=== PATIENT | female | born 1990 | race Two or more races ===

== ENCOUNTER 2021-06-24 08:40 | Day surgery (SDC) | payer OTHER ==
[~2021-06-24 08:40] MED LIST: COZAAR25 MG PO
[2021-06-24] MEDS ORDERED: PERCOCET 5-3251 EACH PO (12:42)
== END 2021-06-24 18:30 | disposition home or self-care (01) ==
LOC: CIR.AMB 08:40
PROVIDERS: ATTEND Surgery
DX: K64.8 Other hemorrhoids (principal); Z20.822 Contact with and (suspected) exposure to COVID-19